=== PATIENT | male | born 1965 | race Hispanic/Latino ===

== ENCOUNTER 2017-08-26 16:49 | Emergency (ER) | payer MEDICAID, MEDICARE, OTHER ==
[2017-08-26] MEDS ORDERED: ACETAMINOPHEN-CODEINE 300/30MG TAB ONE (17:10)
== END 2017-08-26 17:54 | disposition home or self-care (01) ==
LOC: EDH 16:49
DX: S93.491A Sprain of other ligament of right ankle, initial encounter (principal); E78.5 Hyperlipidemia, unspecified; I10 Essential (primary) hypertension; W17.2XXA Fall into hole, initial encounter; Y93.89 Activity, other specified; Y92.89 Other specified places as the place of occurrence of the external cause; Y99.8 Other external cause status
CPT/HCPCS: 73610

== ENCOUNTER 2018-10-12 14:50 | Emergency (ER) | payer MEDICARE ==
[2018-10-12 15:16] LABS: BASOPHILS % (AUTO) 0.6 % (0.0-5.0); EOSINOPHILS % (AUTO) 2.1 % (0.0-8.0); HEMATOCRIT 42.7 % (42-54); LYMPHOCYTES % (AUTO) 26.8 % (21.0-51.0); MEAN CORPUSCULAR HEMOGLOBIN 30.7 pg (27.0-33.0); MEAN CORPUSCULAR HGB CONC 34.8 g/dL (32.0-36.0); MEAN CORPUSCULAR VOLUME 88.2 fL (79-99); MONOCYTES % (AUTO) 5.7 % (3.0-13.0); NEUTROPHILS % (AUTO) 64.8 % (40.0-77.0); PLATELET COUNT (AUTO) 194 K/uL (130-400); RED BLOOD CELL COUNT(AUTO) 4.84 MIL/uL (4.50-6.20); RED CELL DISTRIBUTION WIDTH 12.8 % (11.0-15.5)
[2018-10-12 15:27] LABS: POTASSIUM 3.6 mmol/L (3.5-5.1)
[2018-10-12 15:33] LABS: ALBUMIN 3.5 g/dL (3.5-5.0); BILIRUBIN,TOTAL 0.4 mg/dL (0.2-1.0); TOTAL PROTEIN, SERUM 7.6 g/dL (6.0-8.3)
[2018-10-12 15:34] LABS: INR 0.95 (0.85-1.15); PARTIAL THROMBOPLASTIN TIME 25.4 SEC (26.3-35.5)
[2018-10-12 15:40] LABS: MYOGLOBIN 124 ng/mL (10-92); TROPONIN I < 0.04 ng/mL (0.00-0.06)
[2018-10-12 15:43] LABS: CREATINE KINASE, TOTAL 411 U/L (21-232)
[2018-10-12] MEDS ORDERED: ACETAMINOPHEN EXTRA STRENGTH 500 MG TABLET ONE (15:43)
[2018-10-12] MEDS ORDERED: ASPIRIN 325 MG TABLET ONE (15:43)
== END 2018-10-12 18:46 | disposition home or self-care (01) ==
LOC: EDH 14:50
DX: R07.89 Other chest pain (principal); R00.1 Bradycardia, unspecified; E78.5 Hyperlipidemia, unspecified; I10 Essential (primary) hypertension; E11.9 Type 2 diabetes mellitus without complications
CPT/HCPCS: 36415; 71045; 80053; 82550; 83874; 84484; 85025; 85378; 85610; 85730; 93005

== ENCOUNTER 2024-06-10 15:56 | Emergency (ER) | payer OTHER, MEDICARE ==
[~2024-06-10] VITALS: Ht 175.3 cm; Wt 110.7 kg
[2024-06-10] MEDS: cefTRIAXone 1G VIAL IM ONE (17:10)
[2024-06-10] MEDS ORDERED: SULF1TAB42 PO (18:17)
--- NOTE | 2024-06-10 18:17 | ERN ---
General Chief Complaint: Arm Swelling/Redness Stated Complaint: RT ARM SWELLING Time Seen by MD: 16:18 Time Seen by Midlevel: 16:18 Source: patient History of Present Illness Initial Comments The patient is a morbidly obese 59-year-old male with a past medical history of hyperlipidemia and hypertension presenting to the emergency department with right arm swelling and redness that begins in his elbow. His symptoms started last night and progressively worsened. Denies any fever, chills, or any other symptoms at this time. Allergies: Coded Allergies: No Known Allergies (Unverified Allergy, Unknown, 10/12/18) Home Meds Active Scripts Sulfamethoxazole/Trimethoprim (Bactrim Ds Tablet) 800 Mg-160 Mg Tablet, 1 TAB PO BID for 14 Days, #28 TAB 0 Refills Prov:COREY KOEHLER 06/10/24 Past Medical History Past Medical History: High Cholesterol, Hypertension Past Surgical History: Pacer/AICD ROS Dictation CONSTITUTIONAL: Negative except for HPI HEAD/FACE: Negative except for HPI EENT: Negative except for HPI RESPIRATORY: Negative except for HPI GASTROINTESTINAL/ABDOMINAL: Negative except for HPI GENITOURINARY: Negative except for HPI MUSCULOSKELETAL: Negative except for HPI INTEGUMENTARY: Negative except for HPI NEUROLOGICAL/PSYCH: Negative except for HPI HEMATOLOGIC/LYMPHATIC: Negative except for HPI All Systems Negative, Except as noted above. 13 point review of systems assessed and all negative except for above. Physical Exam Physical Exam Dictation Vital Signs reviewed General Appearance: Alert, oriented x 3, no acute distress, well developed, nourished. Head and Face: non-traumatic. Eyes: PERRL, pink conjunctivas, eyelid no trauma, anterior chamber with arcus senilis. Ears: Pinnas intact and no signs of trauma or erythema ear canals clear and no discharge TM no erythema Nose: No discharge, no bleeding. Oropharynx: Mouth normal, tongue pink, pharynx clear,no erythema, tonsils no exudates, no abscesses noted, mucous membrane moist Neck: Supple, non-tender, no thyromegaly, no masses, no JVD, no bruits Breast:Deferred Chest:No tenderness, no crepitus, no paradoxical movement, no retractions Lungs:Clear, well-ventilated, symmetric, no rales, no wheezing, no rhonchi, no stridor, good breath sounds bilaterally Heart: Regular rate, regular rhythm, no murmur, no gallops Vascular: no peripheral edema, Abdomen: Soft, positive bowel sounds, nondistended, no guarding, nontender, no rebound, no masses no hepatomegaly, no splenomegaly, no Crockett's sign, no hernias. Rectal: Deferred Genital: Deferred Neurological: Normal speech, motor function intact, sensory function intact Musculoskeletal: Neck nontender, full range of motion, back nontender, full range of motion, Extremities: nontender, full range of motion Skin: Color pink, dry, no turgor, no rash, no lacerations, no abrasions, no contusions. Lymphatic: Deferred MDM MDM: The patient is a morbidly obese 59-year-old male with a past medical history of hyperlipidemia and hypertension presenting to the emergency department with right arm swelling and redness that begins in his elbow. His symptoms started last night and progressively worsened. Denies any fever, chills, or any other symptoms at this time. On physical examination there is some mild erythema above the right lateral elbow. Patient has full range motion of the right elbow. There is no point tenderness. X-ray of the right elbow reveals no fracture or dislocation. The patient was given antibiotics in the emergency department and was discharged home with oral antibiotics. Strict return precautions discussed Differential diagnosis: There are no social concerns with this patient. Prescription drug management Prescriptions will include: Bactrim Medical management and examination interpretation discussions were had by me with other qualified healthcare professionals as indicated for the patient's care. ED Course Orders Procedure Category Date Status Time Ceftriaxone 1g Vial PHA 06/10/24 Complete (Rocephine 1g Inj) 17:00 Elbow Comp 3+Vws Rt RAD 06/10/24 Resulted 16:39 Current Medications Medications (Trade) Dose Ordered Sig/Hortencia Route PRN Reason Start Time Stop Time Status Last Admin Dose Admin Ceftriaxone Sodium (ROCEphine 1G INJ) 1 gm ONCE ONCE IM 06/10/24 17:00 06/10/24 17:01 DC 06/10/24 17:10 Vital Signs Date Time Temp Pulse Resp B/P (MAP) Pulse Ox O2 Delivery O2 Flow Rate FiO2 06/10/24 18:22 98.8 68 18 182/92 98 Room Air* 0 21 06/10/24 15:58 99.3 66 20 203/90 98 Room Air [facility] [address] [address] IMAGING REPORT Signed PATIENT: SARTHAK MORALES MR#: [id number] : 1965 SEX: M AGE: 59 LOCATION: [facility] ORDER [id number] STATUS: REG ER REPORT#: [id number] SERVICE [id number] REASON: elbow pain/redness ORDERING PHYSICIAN: COREY KOEHLER PROCEDURE: [id number] RT - ELBOW COMP 3+VWS RT RIGHT ELBOW RADIOGRAPHS - 3 VIEWS INDICATION: Pain COMPARISON: None FINDINGS: AP, lateral, and oblique views. No acute fracture or subluxation identified. No significant joint effusion is present. No radiopaque foreign body noted. IMPRESSION: No evidence for fracture or dislocation. DICTATED BY: ROMMEL PETTIT MD DATE: 06/10/241817 ELECTRONICALLY SIGNED BY: ROMMEL PETTIT MD DATE: 06/10/241820 DX & DISP Disposition: Discharge Departure Impression: Primary Impression: Cellulitis of right elbow Condition: Stable Scripts Sulfamethoxazole/Trimethoprim (Bactrim Ds Tablet) 800 Mg-160 Mg Tablet 1 TAB PO BID for 14 Days, #28 TAB 0 Refills Prov: COREY KOEHLER 06/10/24 Additional Instructions: Your x-ray does not show any evidence of a fracture. It appears based on your physical examination that you are developing a superficial skin infection of the right elbow. I have given you antibiotics in the emergency department. I have also given you a prescription for outpatient oral antibiotics. If your symptoms do not improve over the next 24-48 hours you will need to return to the ER for further evaluation. Referrals: AMAIRANI VELIZ (PCP) I have reviewed the case, and I agree with, Diagnosis and Plan I performed the substantive portion of the visit. I have reviewed and personally made and approve the management plan that is documented in the note by myself or the NOEL. I acknowledge for responsibility for the patient's management plan. COREY KOEHLER Jun 10, 2024 18:17
--- NOTE | 2024-06-10 18:21 | HMCIMG ---
RIGHT ELBOW RADIOGRAPHS - 3 VIEWS INDICATION: Pain COMPARISON: None FINDINGS: AP, lateral, and oblique views. No acute fracture or subluxation identified. No significant joint effusion is present. No radiopaque foreign body noted. IMPRESSION: No evidence for fracture or dislocation.
[2024-06-10 18:22] VITALS: BP 182/92; PULSE 68; RESP 18; TEMP 98.8; O2SAT 98
== END 2024-06-10 18:23 | disposition home or self-care (01) ==
LOC: EDH 15:56
DX: L03.113 Cellulitis of right upper limb (principal); E66.01 Morbid (severe) obesity due to excess calories; E78.00 Pure hypercholesterolemia, unspecified; I10 Essential (primary) hypertension; Z79.899 Other long term (current) drug therapy
CPT/HCPCS: 99283; 73080; 96372; J0696